=== PATIENT | male | born 1985 | race Caucasian/White ===

== ENCOUNTER 2019-02-12 10:20 | Emergency (ER) | payer OTHER ==
[~2019-02-12] VITALS: Ht 170.2 cm; Wt 69.0 kg
[2019-02-12 14:16] LABS: HEPATITIS B SURFACE ANTIGEN NEGATIVE
[2019-02-12 14:46] LABS: HEPATITIS A AB IGM NEGATIVE (NEGATIVE)
[2019-02-12 15:05] VITALS: BP 122/80
== END 2019-02-12 15:00 | disposition home or self-care (01) ==
LOC: ER 10:20
DX: Z77.21 Contact with and (suspected) exposure to potentially hazardous body fluids (principal)
CPT/HCPCS: 36415; 86703; 86705; 86709; 86803; 87340; 99283